=== PATIENT | female | born 1950 | race Caucasian/White ===

== ENCOUNTER 2018-08-22 19:15 | Observation (INO) | payer BC ==
[2018-08-22 19:31] VITALS: BMI 29.2
--- NOTE | 2018-08-22 19:32 | PDOC ---
History of Present Illness - General History Source: Patient Exam Limitations: No Limitations - History of Present Illness Initial Comments: 08/22/18 20:16 The patient is a 68 year old female with a significant PMH of H pylori, angina, colon polyp and asthma who presents to the emergency department with nausea and vomiting since earlier today. The patient reports that she was at a yoga class earlier today when she felt a sudden onset of nausea. The patient states that she subsequently went outside to get air when she felt a dizzy spinning sensation. She reports some associated vomiting with her nausea and dizziness. She also reports some stomach pain and diarrhea. The patient states that when she woke up this morning she had an apple and some tea. She denies having an episode like this in the past. She denies any other symptoms. She denies any fever, chills, constipation, or urinary symptoms. She denies any chest pain, shortness of breath, or headache. The patient denies any other complaints. PAST MEDICAL HISTORY: H pylori, angina, colon polyp and asthma PAST SURGICAL HISTORY: no significant history FAMILY HISTORY: no pertinent history SOCIAL HISTORY: Pt lives with family and is employed. MEDICATIONS: reviewed ALLERGIES: As per nursing notes General: No fevers or chills, no weakness, no weight loss HEENT: No change in vision. No sore throat,. No ear pain CardioVascular: No chest pain or shortness of breath Respiratory:No cough, or wheezing. Gastrointestinal: (+)nausea, vomiting, diarrhea, stomach pain. no constipation , No rectal bleeding Genitourinary: No dysuria, hematuria, or frequency Musculoskeletal: No joint or muscle pain or swelling Neurologic: (+)dizziness. No headache, vertigo, or loss of consciousness Psychiatric: nor depression Skin: No rashes or easy bruising Endocrine: no increased thirst or abnormal weight change Allergic: no skin or latex allergy All other systems reviewed and normal General: Well-nourished well-developed individual, no acute distress HEENT: Throat: Normal, tonsils normal, no erythema or exudate Neck: Supple, no meningeal signs, no lymphadenopathy Eyes::Pupils equal reactive and round, extraocular motion intact Chest: Nontender to palpation Cardiac: S1-S2 normal, regular rate and rhythm, no murmurs rubs or gallops Respiratory: Lungs clear to auscultation bilateral Abdomen: (+)mild tenderness to palpation across lower abdomen . Soft, nondistended, normal bowel sounds. Extremities: Warm, dry, no cyanosis, clubbing, or edema Skin: No rashes Neuro: (+)spinning worse with positional change. Alert and oriented x3, nonfocal exam, grossly intact, normal gait Psych: Normal mood and affect Documentation prepared by Emma Menendez, acting as medical records coder for Freddy Mckeon MD. <Emma Menendez - Last Filed: 08/22/18 20:16> - General History Source: Patient Exam Limitations: No Limitations - History of Present Illness Initial Comments: 08/22/18 20:05 A portion of this note was documented by scribe services under my direction. I have reviewed the details of the note, within reason, and agree with the documentation. The case summary and management plan written by me. 21:00 Patient vomited, , CAT scan pending 22:00 Patient continues to vomit and have some diarrhea in spite of the antiemetics and the fluids. Patient CAT scan was negative for any acute intra-abdominal pathology however does show a cyst small cyst on her liver that will need to be worked up as an outpatient. Otherwise her head CT was also negative Patient continues to have vertigo and vomiting so will admit her to rule out CVA and for further management of her vomiting. <Freddy Mckeon I - Last Filed: 08/22/18 22:09> - General Chief Complaint: Nausea/Vomiting Stated Complaint: vomiting,abdominal pain Time Seen by Provider: 08/22/18 19:31 Past History <Emma Menendez - Last Filed: 08/22/18 20:16> - Past Medical History Asthma: Yes (NO RECENT ATTACK) Cardiac Disorders: Yes (Angina) COPD: No GI Disorders: Yes (COLON POLYPS,H.PYLORI) - Surgical History Cardiac Surgery: Yes (Cath) - Suicide/Smoking/Psychosocial Hx Smoking History: Never smoked Hx Alcohol Use: No Drug/Substance Use Hx: No Substance Use Type: None Hx Substance Use Treatment: No <Freddy Mckeon I - Last Filed: 08/22/18 22:09> - Past Medical History Allergies/Adverse Reactions: Allergies Allergy/AdvReac Type Severity Reaction Status Date / Time Sulfa (Sulfonamide Allergy Verified 08/22/18 19:26 Antibiotics) Home Medications: Ambulatory Orders Albuterol Sulfate [Proair Hfa] 0 gm IH PRN PRN 08/22/18 *Physical Exam - Vital Signs Last Vital Signs Temp Pulse Resp BP Pulse Ox 97.9 F 77 18 159/81 100 08/22/18 19:26 08/22/18 19:26 08/22/18 19:26 08/22/18 20:08 08/22/18 19:26 <Emma Menendez - Last Filed: 08/22/18 20:16> - Vital Signs Last Vital Signs Temp Pulse Resp BP Pulse Ox 97.9 F 77 18 185/86 H 100 08/22/18 19:26 08/22/18 19:26 08/22/18 19:26 08/22/18 19:26 08/22/18 19:26 <Freddy Mckeon I - Last Filed: 08/22/18 22:09> Heart Score/ECG Review - ECG Intrepretation Comment:: 08/22/18 20:16 Vent rate: 71 bpm UT interval: 170ms QRS duration:104ms QT/QTc: 426/462 Normal sinus rhythm Normal ECG Documentation prepared by Emma Menendez, acting as medical records coder for Freddy Mckeon MD. <Emma Menendez - Last Filed: 08/22/18 20:16> ED Treatment Course - LABORATORY CBC & Chemistry Diagram: 08/22/18 19:58 08/22/18 19:58 - ADDITIONAL ORDERS Additional order review: 08/22/18 19:58 RBC 4.80 MCV 88.2 MCHC 33.1 RDW 13.0 MPV 9.6 Neutrophils % 86.6 H Lymphocytes % 10.5 Monocytes % 2.4 L Eosinophils % 0.2 Basophils % 0.3 - Medications Given in the ED: ED Medications Discontinued Medications Generic Name Dose Route Start Last Admin Trade Name Freq PRN Reason Stop Dose Admin Meclizine HCl 50 mg 08/22/18 19:51 08/22/18 20:07 Antivert - PO 08/22/18 19:52 50 mg ONCE ONE Administration Ondansetron HCl 8 mg 08/22/18 19:43 08/22/18 19:57 Zofran Injection IVPB 08/22/18 19:44 8 mg ONCE ONE Administration <Emma Menendez - Last Filed: 08/22/18 20:16> - LABORATORY CBC & Chemistry Diagram: 08/22/18 19:58 08/22/18 19:58 <Freddy Mckeon I - Last Filed: 08/22/18 22:09> *DC/Admit/Observation/Transfer <Emma Menendez - Last Filed: 08/22/18 20:16> - Discharge Dispostion Decision to Admit order: Yes <Freddy Mckeon I - Last Filed: 08/22/18 22:09> Diagnosis at time of Disposition: Vertigo Intractable vomiting Qualifiers: Vomiting type: unspecified Nausea presence: with nausea Qualified Code(s): R11.2 - Nausea with vomiting, unspecified - Discharge Dispostion Condition at time of disposition: Stable - Referrals Referrals: Jean Paul Correa MD [Primary Care Provider] -
[2018-08-22] MEDS ORDERED: ONDANSETRON 4 MG/2 ML VIAL IVPB ONE (19:43)
[2018-08-22] MEDS ORDERED: SODIUM CHLORIDE 1,000 ML IV SCH (19:45)
[2018-08-22] MEDS ORDERED: ONDANSETRON 4 MG/2 ML VIAL ONE (19:49)
[2018-08-22] MEDS ORDERED: MECLIZINE HCL 25 MG TABLET (FP) PO ONE (19:51)
[2018-08-22] MEDS ORDERED: MECLIZINE HCL 25 MG TABLET (FP) ONE (20:01)
[2018-08-22 20:08] LABS: BASO % 0.3 % (0-2.0); EOS % 0.2 % (0-4.5); HEMATOCRIT 42.4 % (32.4-45.2); LYMPH % 10.5 % (8-40); MCH 29.2 pg (25.7-33.7); MCHC 33.1 g/dl (32.0-36.0); MEAN CELL VOLUME 88.2 fl (80-96); MEAN PLT VOLUME 9.6 fl (7.5-11.1); MONO % 2.4 % (3.8-10.2); NEUT % 86.6 % (42.8-82.8); PLATELET COUNT 246 K/MM3 (134-434); WHITE BLOOD COUNT 9.1 K/mm3 (4.0-10.8)
[2018-08-22 20:17] LABS: ALBUMIN 4.4 g/dl (3.5-5.0); ALK PHOS 62 U/L (32-92); ANION GAP 8 MMOL/L (8-16); BILIRUBIN,TOTAL 0.6 mg/dl (0.2-1.0); BLOOD UREA NITROGEN 7 mg/dl (7-18); CALCIUM 8.9 mg/dl (8.4-10.2); CHLORIDE 94 mmol/L (98-107); CO2 29 mmol/L (22-28); GLUCOSE,RANDOM 162 mg/dl (74-106); POTASSIUM 3.2 mmol/L (3.5-5.1); SGOT/AST 28 U/L (10-42); SGPT/ALT 35 U/L (10-40); SODIUM 131 mmol/L (136-145)
[2018-08-22 20:22] LABS: CREATININE < 0.6 mg/dl (0.6-1.3)
[2018-08-22 21:45] LABS: LIPASE 104 U/L (73-393)
[2018-08-22] MEDS ORDERED: METOCLOPRAMIDE HCL INJECTION 10 MG/2 ML VIAL IVPUSH ONE (22:06)
[2018-08-22 22:10] LABS: PH,URINE 8.5 (4.5-8); URINE APPEARANCE Clear; URINE BILIRUBIN Negative (NEGATIVE); URINE COLOR Yellow; URINE GLUCOSE (UA) Trace (NEGATIVE); URINE LEUK ESTERASE Negative (NEGATIVE); URINE NITRITE Negative (NEGATIVE); URINE UROBILINOGEN 0.2 (0.2-1.0)
[2018-08-22 22:13] LABS: URINE KETONE Trace (NEGATIVE); URINE PROTEIN Negative (NEGATIVE)
[2018-08-22] MEDS ORDERED: POTASSIUM CHLORIDE TABS 20 MEQ TABLET.ER (FP) PO ONE ×2 (22:28→23:15)
--- NOTE | 2018-08-23 01:34 | HP ---
CHIEF COMPLAINT: N/V PCP: Sunny HISTORY OF PRESENT ILLNESS: This is a 68 year old female with a past medical history of asthma, angina who presented to the ED with dizziness, nausea and vomiting. Pt reports that she was fine when she awoke this AM; she ate an apple and had some tea. She had to leave yoga in the middle due to dizziness associated with nausea. Sudden onset. She later had vomiting "all day" after attempting to eat a protein bar. Also with diarrhea. She also reports loose BM. She denies exacerbating/relieving factors. She felt better after receiving medications in the ED. She became a little dizzy when transferring to [facility]. She reports feeling better with laying still. ER course was notable for: (1) CT head unremarkable (2) Sodium 131, Potassium 3.2 Recent Travel: [place] early July PAST MEDICAL HISTORY: angina dx 20y ago, takes no meds, has seen Flex in past but not currently following with him; H. pylor, colon polyp, asthma PAST SURGICAL HISTORY: partial hysterectomy with appendectomy tonsillectomy as a child Social History: Smoking: pt denies Alcohol: pt denies Drugs: pt denies Family History: mother age 79, Parkinson's disease, [place] in her 60s, h/o HTN, HLD father age 92, h/o heart disease brother age 59, lung disease, prior smoker 2 children alive and well Allergies Sulfa (Sulfonamide Antibiotics) Allergy (Verified 08/22/18 19:26) HOME MEDICATIONS: 3 Medication Instructions Recorded Albuterol Sulfate [Proair Hfa] 0 gm IH PRN PRN 08/22/18 REVIEW OF SYSTEMS CONSTITUTIONAL: Absent: fever, chills, diaphoresis, generalized weakness, malaise, loss of appetite, weight change HEENT: Absent: rhinorrhea, nasal congestion, throat pain, throat swelling, difficulty swallowing, mouth swelling, ear pain, eye pain, visual changes CARDIOVASCULAR: Absent: chest pain, syncope, palpitations, irregular heart rate, lightheadedness , peripheral edema RESPIRATORY: Absent: cough, shortness of breath, dyspnea with exertion, orthopnea, wheezing, stridor, hemoptysis GASTROINTESTINAL: Present: nausea, vomiting, diarrhea Absent: abdominal pain, abdominal distension, constipation, melena, hematochezia GENITOURINARY: Absent: dysuria, frequency, urgency, hesitancy, hematuria, flank pain, genital pain MUSCULOSKELETAL: Absent: myalgia, arthralgia, joint swelling, back pain, neck pain SKIN: Absent: rash, itching, pallor HEMATOLOGIC/IMMUNOLOGIC: Absent: easy bleeding, easy bruising, lymphadenopathy, frequent infections ENDOCRINE: Absent: unexplained weight gain, unexplained weight loss, heat intolerance, cold intolerance NEUROLOGIC: Present: dizziness Absent: headache, focal weakness or paresthesias, unsteady gait, seizure, mental status changes, bladder or bowel incontinence PSYCHIATRIC: Absent: anxiety, depression, suicidal or homicidal ideation, hallucinations. PHYSICAL EXAMINATION Vital Signs - 24 hr 3 08/22/18 08/22/18 08/22/18 19:26 20:08 23:36 Temperature 97.9 F 97.4 F L Pulse Rate 77 56 L Respiratory 18 16 Rate Blood Pressure 185/86 H 147/61 Blood Pressure 159/81 [Arm] O2 Sat by Pulse 100 99 Oximetry (%) GENERAL: Awake, alert, and fully oriented, in no acute distress. HEAD: Normal with no signs of trauma. EYES: Pupils equal, round and reactive to light, extraocular movements intact, sclera anicteric, conjunctiva clear. No lid lag. EARS, NOSE, THROAT: Ears normal, nares patent, oropharynx clear without exudates. Moist mucous membranes. NECK: Normal range of motion, supple without lymphadenopathy, JVD, or masses. LUNGS: Breath sounds equal, clear to auscultation bilaterally. No wheezes, and no crackles. No accessory muscle use. HEART: Regular rate and rhythm, normal S1 and S2 without murmur, rub or gallop. ABDOMEN: Soft, nontender, not distended, normoactive bowel sounds, no guarding, no rebound, no masses. No hepatomegaly or splenomegaly. MUSCULOSKELETAL: Normal range of motion at all joints. No bony deformities or tenderness. No CVA tenderness. UPPER EXTREMITIES: 2+ pulses, warm, well-perfused. No cyanosis. No clubbing. No peripheral edema. LOWER EXTREMITIES: 2+ pulses, warm, well-perfused. No calf tenderness. No peripheral edema. NEUROLOGICAL: Cranial nerves II-XII intact. Normal speech. Normal gait. + madi lundberg pike, horizontal nystagmus both left and right side PSYCHIATRIC: Cooperative. Good eye contact. Appropriate mood and affect. SKIN: Warm, dry, normal turgor, no rashes or lesions noted, normal capillary refill. Laboratory Results - last 24 hr 3 08/22/18 08/22/18 08/22/18 19:58 19:58 19:58 WBC 9.1 RBC 4.80 Hgb 14.0 Hct 42.4 MCV 88.2 MCH 29.2 MCHC 33.1 RDW 13.0 Plt Count 246 MPV 9.6 Absolute Neuts (auto) 7.9 Neutrophils % 86.6 H Lymphocytes % 10.5 Monocytes % 2.4 L Eosinophils % 0.2 Basophils % 0.3 Sodium 131 L Potassium 3.2 L Chloride 94 L Carbon Dioxide 29 H Anion Gap 8 BUN 7 Creatinine < 0.6 L Creat Clearance w eGFR > 60 Random Glucose 162 H Calcium 8.9 Total Bilirubin 0.6 AST 28 ALT 35 Alkaline Phosphatase 62 Creatine Kinase 232 H Creatine Kinase Index 2.5 CK-MB (CK-2) 5.8 H Troponin I < 0.03 Total Protein 7.0 Albumin 4.4 Lipase 104 Urine Color Urine Appearance Urine pH Ur Specific [place] Gap Urine Protein Urine Glucose (UA) Urine Ketones Urine Blood Urine Nitrite Urine Bilirubin Urine Urobilinogen Ur Leukocyte Esterase Urine RBC 3 Urine Color Yellow 08/22/18 22:07 Urine Appearance Clear 08/22/18 22:07 Urine pH 8.5 (4.5-8) H 08/22/18 22:07 Ur Specific Bone Gap 1.020 (1.010-1.035) 08/22/18 22:07 Urine Protein Negative (NEGATIVE) 08/22/18 22:07 Urine Glucose (UA) Trace (NEGATIVE) 08/22/18 22:07 Urine Ketones Trace (NEGATIVE) 08/22/18 22:07 Urine Blood Negative (NEGATIVE) 08/22/18 22:07 Urine Nitrite Negative (NEGATIVE) 08/22/18 22:07 Urine Bilirubin Negative (NEGATIVE) 08/22/18 22:07 Ur Leukocyte Esterase Negative (NEGATIVE) 08/22/18 22:07 Urine RBC No Result Required. 08/22/18 22:07 EKG Normal Sinus Rhythm vent rate 71, QTC [address] / T wave changes Radiology Reports CXR--official read pending, no obvious infiltrates or effusions CT head Impression: No CT evidence of acute intracranial pathology. Reported By: Tacos Youssef MD [id number]/22/[id number] CT abd/pel IMPRESSION: No definite CT findings of acute pathology are identified. Moderate to large hiatal hernia. A nonspecific solitary 0.4 cm left hepatic lobe hypodense focus is seen which may represent a hemangioma or cyst and probably less likely more significant pathology. Correlation with contrast- enhanced MRI is suggested. Alternatively correlation with 2 month follow-up contrast enhanced multiphase CT may be performed. Very small umbilical hernia containing fat only. Reported By: Tacos Youssef MD 08/22/18 [id number] ASSESSMENT/PLAN: 68yF with PMH angina, asthma, H. pylori, colon polyp presented to the ED with dizziness, nausea, vomiting, diarrhea. Vertigo - pt could not tolerate Cecil procedure due to nausea and dizziness - meclizine 25mg po PRN - consider neuro consult - CT head unremarkable hypokalemia - 40mEq po in ed, repeat in am asthma - no s/s exacerbation DVT PPX - heparin deferred, anticipated LOS less than 48h FEN - NS @ 75cc/hr - BMP in am - clear liquid diet as tolerated for breakfast. Dispo: pt currently requires further observation for management of her emergent condition. Visit type - Emergency Visit Emergency Visit: Yes ED Registration Date: 08/22/18 Care time: The patient presented to the Emergency Department on the above date and was hospitalized for further evaluation of their emergent condition. - New Patient This patient is new to me today: Yes Date on this admission: 08/23/18 - Critical Care Critical Care patient: No
[2018-08-23] MEDS ORDERED: ALBUTEROL SO4 8 GM HFA INHALER IH PRN (01:42)
[2018-08-23] MEDS ORDERED: ONDANSETRON 4 MG/2 ML VIAL IVPUSH PRN (02:19)
[2018-08-23] MEDS ORDERED: SODIUM CHLORIDE 1,000 ML IV SCH (02:30)
[2018-08-23] MEDS: MECLIZINE HCL 25 MG TABLET (FP) PO PRN (02:33)
--- NOTE | 2018-08-23 09:26 | PN ---
Physical Exam: SUBJECTIVE: Patient seen and examined, reports ongoing dizziness and nausea, patient reports as if objects are spinning around her. OBJECTIVE:patient is a 68-year-old female with a past medical history of angina and asthma. Patient was immediately emergency department to telemetry observation for vertigo and vomiting Vital Signs Period Temp Pulse Resp BP Sys/Richards Pulse Ox Last 24 Hr 97 F-97.9 F 56-77 16-18 100-185/44-86 97-100 GENERAL: The patient is awake, alert, and fully oriented, in no acute distress. HEAD: Normal with no signs of trauma. EYES: PERRL, extraocular movements intact, sclera anicteric, conjunctiva clear. No ptosis. ENT: Ears normal, nares patent, oropharynx clear without exudates, moist mucous membranes. NECK: Trachea midline, full range of motion, supple. LUNGS: Breath sounds equal, clear to auscultation bilaterally, no wheezes, no crackles, no accessory muscle use. HEART: Regular rate and rhythm, S1, S2 without murmur, rub or gallop. ABDOMEN: Soft, nontender, nondistended, normoactive bowel sounds, no guarding, no rebound, no hepatosplenomegaly, no masses. EXTREMITIES: 2+ pulses, warm, well-perfused, no edema. NEUROLOGICAL: Cranial nerves II through XII grossly intact.left nystagmus noted , Normal speech, shuffling gaits noted observed. PSYCH: Normal mood, normal affect. SKIN: Warm, dry, normal turgor, no rashes or lesions noted Laboratory Results - last 24 hr 08/22/18 08/22/18 08/22/18 19:58 19:58 19:58 WBC 9.1 RBC 4.80 Hgb 14.0 Hct 42.4 MCV 88.2 MCH 29.2 MCHC 33.1 RDW 13.0 Plt Count 246 MPV 9.6 Absolute Neuts (auto) 7.9 Neutrophils % 86.6 H Lymphocytes % 10.5 Monocytes % 2.4 L Eosinophils % 0.2 Basophils % 0.3 Sodium 131 L Potassium 3.2 L Chloride 94 L Carbon Dioxide 29 H Anion Gap 8 BUN 7 Creatinine < 0.6 L Creat Clearance w eGFR > 60 Random Glucose 162 H Calcium 8.9 Total Bilirubin 0.6 AST 28 ALT 35 Alkaline Phosphatase 62 Creatine Kinase Creatine Kinase Index CK-MB (CK-2) Troponin I < 0.03 Total Protein 7.0 Albumin 4.4 Lipase 104 Urine Color Urine Appearance Urine pH Ur Specific [place] Urine Protein Urine Glucose (UA) Urine Ketones Urine Blood Urine Nitrite Urine Bilirubin Urine Urobilinogen Ur Leukocyte Esterase Urine RBC 08/22/18 08/22/18 19:58 22:07 WBC RBC Hgb Hct MCV MCH MCHC RDW Plt Count MPV Absolute Neuts (auto) Neutrophils % Lymphocytes % Monocytes % Eosinophils % Basophils % Sodium Potassium Chloride Carbon Dioxide Anion Gap BUN Creatinine Creat Clearance w eGFR Random Glucose Calcium Total Bilirubin AST ALT Alkaline Phosphatase Creatine Kinase 232 H Creatine Kinase Index 2.5 CK-MB (CK-2) 5.8 H Troponin I Total Protein Albumin Lipase Urine Color Yellow Urine Appearance Clear Urine pH 8.5 H Ur Specific [place] 1.020 Urine Protein Negative Urine Glucose (UA) Trace Urine Ketones Trace Urine Blood Negative Urine Nitrite Negative Urine Bilirubin Negative Urine Urobilinogen 0.2 Ur Leukocyte Esterase Negative Urine RBC No Result Required. Active Medications Generic Name Dose Route Start Last Admin Trade Name Freq PRN Reason Stop Dose Admin Albuterol Sulfate 2 puff 08/23/18 01:42 Ventolin Hfa Inhaler - IH Q4H PRN SHORT OF BREATH/WHEEZING Sodium Chloride 1,000 mls @ 75 mls/hr 08/23/18 02:30 08/23/18 02:32 Normal Saline - IV 75 mls/hr ASDIR ANISH Administration Meclizine HCl 25 mg 08/23/18 01:43 08/23/18 02:33 Antivert - PO 25 mg Q8H PRN Administration VERTIGO Ondansetron HCl 4 mg 08/23/18 02:19 Zofran Injection IVPUSH Q6H PRN NAUSEA IMAGING ct of head: no acute pathology CT of abdomen and pelvis with contrast: Moderate to large hiatal hernia nonspecific solitary 0.4 cm left hepatic lobe hypodense focus represent hemangioma or cysts will required 2 month follow-up chest xray: no acute pathology ASSESSMENT/PLAN: 1) neuro Vertigo - Valium 5 mg by mouth 1 given patient reports no relief, ambulated patient in hallway patient reports a spinning sensation inside her head with nausea, MRI of brain ordered -Neurology input appreciated 2) pulmonary asthma - no s/s exacerbation 3) GI nausea and vomiting - ct scan of abd reviewed, pt is tolerating clear liquid diet, will advance - continue zofran prn DVT PPX - heparin deferred, anticipated LOS less than 48h FEN - NS @ 75cc/hr - BMP in am - clear liquid diet as tolerated for breakfast. Dispo: pt currently requires further observation for management of her emergent condition.
[2018-08-23] MEDS ORDERED: diazePAM 5 MG TABLET PO ONE (10:10)
[2018-08-23] MEDS: PANTOPRAZOLE SODIUM 40 MG VIAL IVPUSH SCH (10:16)
[2018-08-23] MEDS: SODIUM CHLORIDE 0.45%/POT 20 MEQ/1,000 ML INFUS.BAG IV SCH (10:16)
[2018-08-23 10:27] LABS: BASO % 0.4 % (0-2.0); EOS % 0.5 % (0-4.5); HEMATOCRIT 40.7 % (32.4-45.2); HEMOGLOBIN 13.6 GM/dl (10.7-15.3); LYMPH % 18.7 % (8-40); MCH 29.4 pg (25.7-33.7); MCHC 33.3 g/dl (32.0-36.0); MEAN CELL VOLUME 88.3 fl (80-96); MEAN PLT VOLUME 9.5 fl (7.5-11.1); MONO % 7.8 % (3.8-10.2); NEUT % 72.6 % (42.8-82.8); PLATELET COUNT 234 K/MM3 (134-434); RBC 4.61 M/mm3 (3.60-5.2); RDW 12.9 % (11.6-15.6); WHITE BLOOD COUNT 6.7 K/mm3 (4.0-10.8)
[2018-08-23 10:37] LABS: ANION GAP 7 MMOL/L (8-16); BLOOD UREA NITROGEN 6 mg/dl (7-18); CALCIUM 8.8 mg/dl (8.4-10.2); CHLORIDE 102 mmol/L (98-107); CO2 24 mmol/L (22-28); CREATININE 0.6 mg/dl (0.6-1.3); GLUCOSE,RANDOM 170 mg/dl (74-106); MAGNESIUM 2.1 mg/dL (1.8-2.4); PHOSPHOROUS 2.9 mg/dl (2.5-4.6); POTASSIUM 3.6 mmol/L (3.5-5.1); SODIUM 133 mmol/L (136-145)
--- NOTE | 2018-08-23 12:12 | EKG ---
Test Reason : Blood Pressure : / mmHG Vent. Rate : 071 BPM Atrial Rate : 071 BPM P-R Int : 170 ms QRS Dur : 104 ms QT Int : 426 ms P-R-T Axes : 049 058 029 degrees QTc Int : 462 ms NORMAL SINUS RHYTHM NORMAL ECG NO PREVIOUS ECGS AVAILABLE Confirmed by CHARO BECKER MD ([id number]) on 08/23/2018 12:12:06 PM Referred By: MD EDWARDS Confirmed By:CHARO BECKER MD
[2018-08-23] MEDS ORDERED: ZOLPIDEM TARTRATE 5 MG TABLET PO PRN (14:30)
--- NOTE | 2018-08-23 14:42 | ECHO ---
Name: ADINA MONGE Exam:Adult Echocardiogram Study Date: 08/23/2018 12:48 PM Age: 68 yrs Reason For Study: PRE SYNCOPE Height: 62 in Weight: 161 lb BSA: 1.7 m2 MMode/2D Measurements & Calculations IVSd: 0.92 cm Ao root diam: 2.7 cm LVIDd: 4.2 cm LA dimension: 2.8 cm LVIDs: 2.8 cm LVPWd: 0.72 cm EDV(Teich): 79.9 ml ESV(Teich): 29.1 ml Doppler Measurements & Calculations MV E max yung: 90.9 cm/sec MV A max yung: 85.8 cm/sec MV dec slope: 408.1 cm/sec2 MV E/A: 1.1 TR max yung: 174.5 cm/sec TR max P.2 mmHg Procedure A complete two-dimensional transthoracic echocardiogram was performed (2D, M-mode, Doppler and color flow Doppler). Left Ventricle The left ventricular size, thickness and function are normal. The left ventricular ejection fraction is normal. Ejection Fraction = 60-65%. The left ventricular wall motion is normal. Right Ventricle The right ventricle is normal in size and function. Atria Normal left and right atrial size and function. Mitral Valve There is no mitral regurgitation noted. Tricuspid Valve There is trace tricuspid regurgitation. There was insufficient TR detected to calculate RV systolic p ressure. Aortic Valve No hemodynamically significant valvular aortic stenosis. No aortic regurgitation is present. Pulmonic Valve Trace pulmonic valvular regurgitation. Great Vessels The aortic root is normal size. Pericardium/Pleura There is no pericardial effusion. Interpretation Summary The left ventricular size, thickness and function are normal. The right ventricle is normal in size and function. There is trace tricuspid regurgitation. Trace pulmonic valvular regurgitation. MD Patric Mccord 08/23/2018 02:41 PM
[2018-08-23] MEDS: ASPIRIN COATED 81 MG TABLET.EC PO SCH (15:00)
--- NOTE | 2018-08-23 17:26 | CON.NEURO ---
Consult Consult Specialty:: Berry Referred by:: Hospitalist Reason for Consultation:: Dizzy - History of Present Illness History of Present Illness: 68-year-old right-handed female patient with present medical history significant for coronary artery disease, angina, asthma, questionable diabetes presented to the hospital with dizziness. Patient was consulted upon by neurology at the request of the hospitalist on August 23, 2018 with chief complaint of difficulty with her equilibrium and balance. No report of any recent travel patient was seen on the medical floor no report of any recent head trauma. Patient describes dizziness as feeling off balance no nausea no Patient denies any true vertigo no buzzing sound no tinnitus. CAT scan of the head revealed no evidence of acute central nervous system pathology. Patient was at the Yoga class No new travel Patient had sustained nausea and vomiting - History Source History Provided By: Patient Limitations to Obtaining History: No Limitations - Alcohol/Substance Use Hx Alcohol Use: No - Smoking History Smoking history: Never smoked Home Medications - Allergies Allergies/Adverse Reactions: Allergies Allergy/AdvReac Type Severity Reaction Status Date / Time Sulfa (Sulfonamide Allergy Verified 08/22/18 19:26 Antibiotics) - Home Medications Home Medications: Ambulatory Orders Albuterol Sulfate [Proair Hfa] 0 gm IH PRN PRN 08/22/18 Family Disease History - Family Disease History Family History: Denies (stroke) Review of Systems - Review of Systems Neurological: reports: Headache, Incoordination, Numbness, Unsteady Gait Physical Exam-Neuro Vital Signs: Vital Signs Temperature 98.2 F 08/23/18 14:14 Pulse Rate 62 08/23/18 14:14 Respiratory Rate 16 08/23/18 14:14 Blood Pressure 126/57 L 08/23/18 14:14 O2 Sat by Pulse Oximetry (%) 94 L 08/23/18 14:14 Constitutional: Yes: Well Nourished Neck: Yes: WNL Respiratory: Yes: WNL Labs: CBC, BMP 08/23/18 09:59 08/23/18 09:59 - Neuro Exam Level Of Consciousness: Yes: Oriented to Person, Oriented to Place, Oriented to Time Eyes: Yes: PERRLA Speech: WNL Dominant Hand: Left Cranial Nerves II-XII Intact: Yes Gag: Present DTR's: 1+ Left Bicep, 1+ Right Bicep, 1+ Left Brachioradialis, 1+ Right Brachioradialis Imaging - Results Cat Scan: Image Reviewed Problem List - Problems (1) Vertigo Assessment/Plan: subacute labyrinthitis Cannot rule out mild small ischemic lacunar stroke in the cerebellum 1. Tight blood pressure control 2. Tight blood sugar control 3. Fall precautions 4. Baby aspirin 5. No need for carotid 6. MRI of the brain with no contrast Code(s): R42 - DIZZINESS AND GIDDINESS
[2018-08-24 08:24] LABS: BASO % 0.6 % (0-2.0); EOS % 2.3 % (0-4.5); HEMATOCRIT 40.5 % (32.4-45.2); HEMOGLOBIN 13.4 GM/dl (10.7-15.3); LYMPH % 42.6 % (8-40); MCH 29.5 pg (25.7-33.7); MCHC 33.1 g/dl (32.0-36.0); MEAN CELL VOLUME 89.1 fl (80-96); MEAN PLT VOLUME 9.4 fl (7.5-11.1); MONO % 9.9 % (3.8-10.2); NEUT % 44.6 % (42.8-82.8); PLATELET COUNT 228 K/MM3 (134-434); RBC 4.54 M/mm3 (3.60-5.2); RDW 13.4 % (11.6-15.6); WHITE BLOOD COUNT 3.4 K/mm3 (4.0-10.8)
[2018-08-24 08:30] LABS: INR 1.07 (0.82-1.09)
[2018-08-24 08:38] LABS: ALBUMIN 3.8 g/dl (3.5-5.0); ALK PHOS 57 U/L (32-92); ANION GAP 3 MMOL/L (8-16); BILIRUBIN,TOTAL 0.8 mg/dl (0.2-1.0); BLOOD UREA NITROGEN 5 mg/dl (7-18); CHLORIDE 106 mmol/L (98-107); CO2 29 mmol/L (22-28); CREATININE 0.6 mg/dl (0.6-1.3); GLUCOSE,RANDOM 137 mg/dl (74-106); MAGNESIUM 2.1 mg/dL (1.8-2.4); PHOSPHOROUS 2.7 mg/dl (2.5-4.6); POTASSIUM 3.9 mmol/L (3.5-5.1); SGOT/AST 22 U/L (10-42); SGPT/ALT 26 U/L (10-40); SODIUM 138 mmol/L (136-145); TOT PROT 6.2 g/dl (6.4-8.3)
[2018-08-24] MEDS: ASPIRIN COATED 81 MG TABLET.EC PO SCH (09:31)
[2018-08-24] MEDS: SODIUM CHLORIDE 0.45%/POT 20 MEQ/1,000 ML INFUS.BAG IV SCH (09:33)
[2018-08-24] MEDS: PANTOPRAZOLE SODIUM 40 MG VIAL IVPUSH SCH (09:33)
[2018-08-24] MEDS: MECLIZINE HCL 25 MG TABLET (FP) PO PRN (11:07)
[2018-08-24 12:22] VITALS: BP 154/95; PULSE 72; TEMP 98.6
--- NOTE | 2018-08-24 12:44 | DS ---
Physical Exam: SUBJECTIVE: Patient seen and examined OBJECTIVE: Vital Signs Period Temp Pulse Resp BP Sys/Richards Pulse Ox Last 24 Hr 98.0 F-98.6 F 62-72 16-18 126-154/57-95 94-97 PHYSICAL EXAM GENERAL: The patient is awake, alert, and fully oriented, in no acute distress. HEAD: Normal with no signs of trauma. EYES: PERRL, extraocular movements intact, sclera anicteric, conjunctiva clear. ENT: Ears normal, nares patent, oropharynx clear without exudates, moist mucous membranes. NECK: Trachea midline, full range of motion, supple. LUNGS: Breath sounds equal, clear to auscultation bilaterally, no wheezes, no crackles, no accessory muscle use. HEART: Regular rate and rhythm, S1, S2 without murmur, rub or gallop. ABDOMEN: Soft, nontender, nondistended, normoactive bowel sounds, no guarding, no rebound, no hepatosplenomegaly, no masses. EXTREMITIES: 2+ pulses, warm, well-perfused, no edema. NEUROLOGICAL: Cranial nerves II through XII grossly intact. Normal speech, gait not observed. PSYCH: Normal mood, normal affect. SKIN: Warm, dry, normal turgor, no rashes or lesions noted. LABS Laboratory Results - last 24 hr 08/23/18 08/23/18 08/24/18 16:00 16:00 08:00 WBC 3.4 L RBC 4.54 Hgb 13.4 Hct 40.5 MCV 89.1 MCH 29.5 MCHC 33.1 RDW 13.4 Plt Count 228 MPV 9.4 Absolute Neuts (auto) 1.6 Neutrophils % 44.6 Lymphocytes % 42.6 H Monocytes % 9.9 Eosinophils % 2.3 Basophils % 0.6 PT with INR INR Sodium Potassium Chloride Carbon Dioxide Anion Gap BUN Creatinine Creat Clearance w eGFR Random Glucose Hemoglobin A1c % Calcium Phosphorus Magnesium Total Bilirubin AST ALT Alkaline Phosphatase Creatine Kinase 140 Troponin I < 0.03 Total Protein Albumin 08/24/18 08/24/18 08/24/18 08:00 08:00 08:00 WBC RBC Hgb Hct MCV MCH MCHC RDW Plt Count MPV Absolute Neuts (auto) Neutrophils % Lymphocytes % Monocytes % Eosinophils % Basophils % PT with INR 12.0 INR 1.07 Sodium 138 Potassium 3.9 Chloride 106 Carbon Dioxide 29 H D Anion Gap 3 L BUN 5 L Creatinine 0.6 Creat Clearance w eGFR > 60 Random Glucose 137 H Hemoglobin A1c % 6.8 H Calcium 9.0 Phosphorus 2.7 Magnesium 2.1 Total Bilirubin 0.8 AST 22 D ALT 26 D Alkaline Phosphatase 57 Creatine Kinase Troponin I Total Protein 6.2 L Albumin 3.8 HOSPITAL COURSE: Date of Admission:08/22/18 Date of Discharge: 08/24/18 Minutes to complete discharge: 45 Discharge Summary Reason For Visit: VERTIGO/INTRACTABLE VOMITING Current Active Problems Intractable vomiting (Acute) Vertigo (Acute) Condition: Stable - Instructions Referrals: Jean Paul Correa MD [Primary Care Provider] - - Home Medications Comprehensive Discharge Medication List: Ambulatory Orders Albuterol Sulfate [Proair Hfa] 0 gm IH PRN PRN 08/22/18
== END 2018-08-24 14:15 | disposition home or self-care (01) ==
LOC: SUPCPDRO 19:15 → FER 19:15 → FM/S 22:09 → UNDOADMOB 23:36 → FM/S 08-23 06:23
PROVIDERS: ADMIT Internal Medicine; ATTEND Nurse Practitioner Family
PROC: 3E033GC Introduction of Other Therapeutic Substance into Peripheral Vein, Percutaneous Approach (ICD-10-PCS; principal; 2018-08-22)
PROC: 3E0337Z Introduction of Electrolytic and Water Balance Substance into Peripheral Vein, Percutaneous Approach (ICD-10-PCS; 2018-08-22)
DX: R42 Dizziness and giddiness (principal); R11.2 Nausea with vomiting, unspecified; E87.6 Hypokalemia; J45.909 Unspecified asthma, uncomplicated
CPT/HCPCS: 36415; 70450-TC; 70551-TC; 71045-TC-FY; 74177-TC; 80048; 80053; 81003; 81015; 82550; 82553; 82607; 83036; 83690; 83735; 84100; 84436; 84443; 84479; 84484; 85025; 85610; 87086; 93005; 93306-TC; 97116-GP; 97161-GP; 99285-25; G0378; J3480; J7030

== ENCOUNTER 2020-01-08 16:42 | Emergency (ER) | payer OTHER, BC ==
[2020-01-08] MEDS ORDERED: METOCLOPRAMIDE HCL INJECTION 10 MG/2 ML VIAL IVPUSH ONE (17:03)
[2020-01-08] MEDS ORDERED: ACETAMINOPHEN 1000 MG/100 ML VIAL (NON FORMULARY) IVPB ONE (17:03)
[2020-01-08 17:05] VITALS: BMI 28.3
[2020-01-08] MEDS ORDERED: ACETAMINOPHEN INJECTION 100 ML IVPB ONE (17:26)
[2020-01-08] MEDS ORDERED: METOCLOPRAMIDE HCL INJECTION 10 MG/2 ML VIAL ONE (17:27)
[2020-01-08] MEDS ORDERED: MECLIZINE HCL 25 MG TABLET (FP) PO ONE (17:30)
--- NOTE | 2020-01-08 17:30 | PDOC ---
Attending Attestation - Resident Resident Name: Toby Huang - ED Attending Attestation I have performed the following: I have examined & evaluated the patient, The case was reviewed & discussed with the resident, I agree w/resident's findings & plan, Exceptions are as noted - HPI HPI: 01/08/20 17:32 69yo female with hx of vertigo about a year ago presents with a week of headaches behind her R eye/R forehead and dizziness/feeling off balance. Pt c/o nausea. States about 2 weeks ago that she saw Dr. Correa for l ear pain and sinus pressure. States she was treated with ear drops at that time, followed up with Dr. Whyte today - no ear infection, nasal exam normal, no signs of infection per dr whyte, but bp 200 in the office with the headache and dizziness. Pt states she has been taking full strength asa daily for the valenzuela without relief x 1 week. No f /c. No neck pain. Vertigo and nausea. States her L ear still feels funny. States about a week ago she felt sob when walking, but she used her inhaler with relief. NO cp. No abd pain. No vomiting. - Physicial Exam PE: 01/08/20 17:36 Gen: aaox3, nad heent: PERRL, EOMI, mild nare bogginess, tm intact-no bulging, no erythema, no effusion, no otitis externa, posterior pharynx clear, mmm neck: supple heart: +s1s2 reg lungs: cta b/l abd: soft, nt/nd +bs ext: no c/c/e neuro: cn ii-xii grossly intact, muscle strength 5/5 UE and LE, sensation intact , normal heel-mckinley b/l skin: no rashes - Medical Decision Making 01/08/20 17:38 a/p: 69yo female with elevated bp and headache -a week of valenzuela, neuro intact, low suspicion for SAH -suspect bp secondary to pain -will send for head ct, labs, ekg, cxr -will give reglan, meclizine, tylenol for the valenzuela -will monitor and reassess 01/08/20 17:55 labs reviewed cbc pending head ct without acute findings 01/08/20 18:08 trop neg 01/08/20 18:20 cbc stable repeat bp improving 01/08/20 19:18 pt signed out pending repeat bp and further eval/meds for valenzuela Heart Score/ECG Review - ECG Intrepretation Comment:: 01/08/20 18:20 sinus at 62, nl axis, nl interval, no acute st/t wave findings
--- NOTE | 2020-01-08 17:30 | PDOC ---
History of Present Illness - General Chief Complaint: Lightheaded Stated Complaint: DIZZINESS AND HEADACHE Time Seen by Provider: 01/08/20 16:45 - History of Present Illness Initial Comments: Shae Holguin is a 69 y/o female with PMH significant for vertigo, asthma, angina, presenting today with 1 week of vertigo dizziness, headache, nausea. Reports that she was at the ENT's office today when he noted that her blood pressure was > 200 sBP and sent her to the ER for further evaluation. Reports an episode of mild shortness of breath that last week. Denies chest pain/ abdominal pain. Reports migraine like headaches which she does not have regularly. She does not take any meds for BP and she is usually in the 130s. Denies current stressors. Past History - Past Medical History Allergies/Adverse Reactions: Allergies Allergy/AdvReac Type Severity Reaction Status Date / Time Sulfa (Sulfonamide Allergy Verified 08/22/18 19:26 Antibiotics) Home Medications: Ambulatory Orders Aspirin Coated [Ecotrin -] 81 mg PO DAILY tablet.ec 08/24/18 Amoxicillin - [Amoxicillin 500mg Capsule -] 500 mg PO TID #21 capsule 01/08/20 Meclizine HCl [Antivert -] 25 mg PO TID PRN #12 tablet 01/08/20 Asthma: Yes (NO RECENT ATTACK) Cardiac Disorders: Yes (Angina) COPD: No GI Disorders: Yes (COLON POLYPS,H.PYLORI) - Surgical History Cardiac Surgery: Yes (Cath) - Psycho Social/Smoking Cessation Hx Smoking History: Never smoked Information on smoking cessation initiated: No Hx Alcohol Use: No Drug/Substance Use Hx: No Substance Use Type: None Hx Substance Use Treatment: No Review of Systems - Review of Systems Comments:: GENERAL/CONSTITUTIONAL: No fever or chills. No weakness._ HEAD, EYES, EARS, NOSE AND THROAT: No change in vision. No change in hearing. No sore throat._ CARDIOVASCULAR: No chest pain. Reports mild shortness of breath. RESPIRATORY: Denies cough, hemoptysis_ GASTROINTESTINAL: Reports nausea. No vomiting, diarrhea or constipation._ GENITOURINARY: No dysuria, frequency, or change in urination._ MUSCULOSKELETAL: No joint or muscle swelling or pain. No neck or back pain._ SKIN: No rash_ NEUROLOGIC: Repots headache and vertigo. No loss of consciousness, or change in strength/sensation._ ENDOCRINE: No increased thirst. No abnormal weight change_ HEMATOLOGIC/LYMPHATIC: No anemia, easy bleeding, or history of blood clots._ ALLERGIC/IMMUNOLOGIC: No hives or skin allergy._ *Physical Exam - Vital Signs Last Vital Signs Temp Pulse Resp BP Pulse Ox 97.6 F 78 16 224/104 H 100 01/08/20 16:44 01/08/20 16:44 01/08/20 16:44 01/08/20 16:44 01/08/20 16:44 - Physical Exam GENERAL: Awake, alert, and oriented to person/place/time, in no acute distress_ HEAD: No signs of trauma, normocephalic, atraumatic _ EYES: PERRLA, EOMI, sclera anicteric, conjunctiva clear. Dizziness worse with far lateral gaze but no nystagmus noted. ENT: Hearing grossly normal, nares patent, oropharynx clear without exudates. No uvular deviation. Moist mucosa_ NECK: Normal ROM, supple, no lymphadenopathy, JVD, or masses_ LUNGS: No distress, speaks in full sentences, clear to auscultation bilaterally _ HEART: Regular rate and rhythm, normal S1 and S2, no murmurs appreciated, peripheral pulses normal and equal bilaterally._ ABDOMEN: Soft, nontender, normoactive bowel sounds. No guarding, no rebound. No masses_ EXTREMITIES: Normal inspection, Normal range of motion, no edema. No clubbing or cyanosis_ NEUROLOGICAL: CN II-XII tested and intact. Sensation intact to sharp/dull differentiation in all extremities. Motor: Normal tone and bulk. No abnormal movements appreciated. No pronator drift. Strength tested and 5/5 in bilateral wrist flexion/extension, elbow flexion/extension, shoulder abduction, straight leg raise, knee flexion/ extension, ankle dorsiflexion/plantarflexion. Patient ambulates with a steady gait. Coordination: Finger to nose and heel to mckinley testing intact bilaterally. SKIN: Warm, Dry, normal turgor, no rashes or lesions noted_ ED Treatment Course - LABORATORY CBC & Chemistry Diagram: 01/08/20 17:20 01/08/20 17:20 Medical Decision Making - Medical Decision Making 01/08/20 17:35 69F hx of asthma, angina, vertigo, presenting today with 1 week of vertigo, migraine like headache. -cbc, cmp -trop, ekg -ct head -coags -meclizine -ua, ucx 01/08/20 18:09 CT head negative for acute intracranial pathology. 01/08/20 18:22 EKG shows NSR, 62 bpm, no ST elevation, QTc 440. Pt reassessed. Reports moderate improvement with meds. Will order Norvasc 5 mg PO and Toradol 15 mg. 01/08/20 19:00 Pt signed out to Dr. Guaman. Discharge - Discharge Information Problems reviewed: Yes Clinical Impression/Diagnosis: Vertigo, Elevated blood pressure reading Sinusitis Qualifiers: Sinusitis location: unspecified location Chronicity: acute Recurrence: non- recurrent Qualified Code(s): J01.90 - Acute sinusitis, unspecified Condition: Stable Disposition: HOME - Additional Discharge Information Prescriptions: Amoxicillin - [Amoxicillin 500mg Capsule -] 500 mg PO TID #21 capsule Meclizine HCl [Antivert -] 25 mg PO TID PRN #12 tablet PRN Reason: Vertigo - Follow up/Referral Referrals: Jean Paul Correa MD [Primary Care Provider] - 2 Days - Patient Discharge Instructions Patient Printed Discharge Instructions: DI for Sinusitis Additional Instructions: Amoxicillin 500 mg 3 times a day for 1 week Meclizine 25 mg up to 3 times a day as needed for vertigo Follow-up with Dr. Correa within the next 48 hours Return to ER if you have severe headache, persistent vertigo or develop fever - Post Discharge Activity
[2020-01-08 17:48] LABS: ALBUMIN 4.4 g/dl (3.4-5.0); CALCIUM 9.1 mg/dl (8.5-10); CREATININE 0.5 mg/dl (0.55-1.3); POTASSIUM 3.9 mmol/L (3.5-5.1); TOT PROT 7.4 g/dl (6.4-8.2)
[2020-01-08 17:51] LABS: INR 1.05 (0.82-1.09); PROTHROMBIN TIME (PATIENT) 11.7 SEC (10.2-13.0)
[2020-01-08] MEDS ORDERED: MECLIZINE HCL 25 MG TABLET (FP) ONE (18:03)
[2020-01-08 18:11] LABS: BASO % 0.4 % (0-2.0); EOS % 0.5 % (0-4.5); HEMATOCRIT 45.1 % (32.4-45.2); HEMOGLOBIN 14.9 GM/dl (10.7-15.3); LYMPH % 22.8 % (8-40); MCH 29.5 pg (25.7-33.7); MEAN CELL VOLUME 89.4 fl (80-96); MEAN PLT VOLUME 9.1 fl (7.5-11.1); MONO % 5.7 % (3.8-10.2); NEUT % 70.6 % (42.8-82.8); PLATELET COUNT 240 K/MM3 (134-434); RBC 5.04 M/mm3 (3.60-5.2); RDW 12.4 % (11.6-15.6); WHITE BLOOD COUNT 7.9 K/mm3 (4.0-10.8)
[2020-01-08] MEDS ORDERED: KETOROLAC TROMETHAMINE 15 MG/ML VIAL IVPUSH ONE (18:23)
[2020-01-08] MEDS ORDERED: amLODIPine BESYLATE 5 MG TABLET (FP) PO ONE (18:23)
[2020-01-08] MEDS ORDERED: amLODIPine BESYLATE 5 MG TABLET (FP) ONE (18:42)
[2020-01-08] MEDS ORDERED: KETOROLAC TROMETHAMINE 15 MG/ML VIAL ONE (18:42)
[2020-01-08 19:03] LABS: EPITHELIAL CELLS FEW /hpf
--- NOTE | 2020-01-08 19:42 | PDOC ---
*Physical Exam - Vital Signs Last Vital Signs Temp Pulse Resp BP Pulse Ox 97.6 F 66 18 197/87 H 98 01/08/20 16:44 01/08/20 18:30 01/08/20 18:30 01/08/20 18:30 01/08/20 18:30 ED Treatment Course - LABORATORY CBC & Chemistry Diagram: 01/08/20 17:20 01/08/20 17:20 - ADDITIONAL ORDERS Additional order review: Laboratory Results 01/08/20 01/08/20 01/08/20 17:20 17:20 17:20 PT with INR 11.7 INR 1.05 PTT (Actin FS) Sodium 134 L Potassium 3.9 Chloride 97 L Carbon Dioxide 29 Anion Gap 8 BUN 6.0 L Creatinine 0.5 L Est GFR (CKD-EPI)AfAm 112.86 Est GFR (CKD-EPI)NonAf 97.37 Random Glucose 160 H Calcium 9.1 Total Bilirubin 1.0 AST 26 ALT 25 Alkaline Phosphatase 72 Creatine Kinase 143 Troponin I Total Protein 7.4 Albumin 4.4 Urine Color Yellow Urine Appearance Clear Urine pH 7.0 Urine Protein Negative Urine Glucose (UA) Negative Urine Ketones Negative Urine Blood Trace-intact Urine Nitrite Negative Urine Bilirubin Negative Urine Urobilinogen 0.2 Ur Leukocyte Esterase Negative Urine RBC 2-5 Urine WBC 2-5 Ur Transition Epith Cell Few Urine Bacteria Few 01/08/20 01/08/20 17:20 17:06 PT with INR INR PTT (Actin FS) 33.1 Sodium Potassium Chloride Carbon Dioxide Anion Gap BUN Creatinine Est GFR (CKD-EPI)AfAm Est GFR (CKD-EPI)NonAf Random Glucose Calcium Total Bilirubin AST ALT Alkaline Phosphatase Creatine Kinase Troponin I < 0.03 Total Protein Albumin Urine Color Urine Appearance Urine pH Urine Protein Urine Glucose (UA) Urine Ketones Urine Blood Urine Nitrite Urine Bilirubin Urine Urobilinogen Ur Leukocyte Esterase Urine RBC Urine WBC Ur Transition Epith Cell Urine Bacteria 01/08/20 17:20 RBC 5.04 MCV 89.4 MCHC 33.0 RDW 12.4 MPV 9.1 Neutrophils % 70.6 Lymphocytes % 22.8 Monocytes % 5.7 Eosinophils % 0.5 Basophils % 0.4 - Medications Given in the ED: ED Medications Discontinued Medications Generic Name Dose Route Start Last Admin Trade Name Freq PRN Reason Stop Dose Admin Acetaminophen 1,000 mg 01/08/20 17:03 01/08/20 17:40 Ofirmev Injection - IVPB 01/08/20 17:04 1,000 mg ONCE ONE Administration Amlodipine Besylate 5 mg 01/08/20 18:23 01/08/20 18:50 Norvasc - PO 01/08/20 18:24 5 mg ONCE ONE Administration Ketorolac Tromethamine 15 mg 01/08/20 18:23 01/08/20 18:50 Toradol Injection - IVPUSH 01/08/20 18:24 15 mg ONCE ONE Administration Meclizine HCl 25 mg 01/08/20 17:30 01/08/20 18:09 Antivert - PO 01/08/20 17:31 25 mg ONCE ONE Administration Metoclopramide HCl 10 mg 01/08/20 17:03 01/08/20 17:35 Reglan Injection - IVPUSH 01/08/20 17:04 10 mg ONCE ONE Administration ED Progress Note - Progress Note Progress Note: Care of this patient received from Dr. Martinez. This 69-year-old woman was referred here from Dr. Whyte's office where she presented with right periorbital pain and vertigo; her presenting blood pressure was markedly elevated at the office. Patient had full diagnostic work- up including laboratory evaluation, EKG, noncontrast head CT. No acute abnormalities detected on work-up. Patient was treated with IV acetaminophen, IV ketorolac (15 mg), IV Reglan and meclizine PO. For her persistent hypertension, amlodipine 5 mg was administered. Blood pressure measured 90 minutes after amlodipine dose: 190/79 (presenting BP was 220/104) Patient felt significantly better after medications with resolution of her vertigo; she did however have some mild residual discomfort in the right periorbital area. Because of very mild edema and tenderness in this area, she will be started on amoxicillin 500 mg 3 times a day with first dose given here. The patient relates that she had been started on antihistamine/decongestant therapy last week without significant decrease in her periorbital discomfort. Antibiotic course will be started empirically and patient has been strongly advised to follow-up with her PMD, Dr. Correa, within the next 48 hours to re- evaluate her blood pressure and her response to antibiotic therapy. She should return to the emergency room if she notes recurrence of persistent vertigo, worsening of her headache or development of fever Discharge - Discharge Information Problems reviewed: Yes Clinical Impression/Diagnosis: Vertigo, Elevated blood pressure reading Sinusitis Qualifiers: Sinusitis location: unspecified location Chronicity: acute Recurrence: non- recurrent Qualified Code(s): J01.90 - Acute sinusitis, unspecified Condition: Stable Disposition: HOME - Additional Discharge Information Prescriptions: Amoxicillin - [Amoxicillin 500mg Capsule -] 500 mg PO TID #21 capsule Meclizine HCl [Antivert -] 25 mg PO TID PRN #12 tablet PRN Reason: Vertigo - Follow up/Referral Referrals: Jean Paul Correa MD [Primary Care Provider] - 2 Days - Patient Discharge Instructions Patient Printed Discharge Instructions: DI for Sinusitis Additional Instructions: Amoxicillin 500 mg 3 times a day for 1 week Meclizine 25 mg up to 3 times a day as needed for vertigo Follow-up with Dr. Correa within the next 48 hours Return to ER if you have severe headache, persistent vertigo or develop fever - Post Discharge Activity
[2020-01-08 19:54] VITALS: BP 190/79; PULSE 67; TEMP 97.7
[2020-01-08] MEDS ORDERED: AMOXICILLIN 500 MG CAPSULE (FP) PO ONE (20:12)
[2020-01-08] MEDS ORDERED: AMOXICILLIN 250 MG CAPSULE ONE (20:20)
--- NOTE | 2020-01-09 11:55 | EKG ---
Test Reason : Blood Pressure : / mmHG Vent. Rate : 062 BPM Atrial Rate : 062 BPM P-R Int : 164 ms QRS Dur : 100 ms QT Int : 434 ms P-R-T Axes : 044 048 027 degrees QTc Int : 440 ms NORMAL SINUS RHYTHM NORMAL ECG WHEN COMPARED WITH ECG OF 22-AUG-2018 19:58, NO SIGNIFICANT CHANGE WAS FOUND Confirmed by CHARO BECKER MD ([id number]) on 01/09/2020 11:54:48 AM Referred By: MD EDWARDS Confirmed By:CHARO BECKER MD
== END 2020-01-08 20:28 | disposition home or self-care (01) ==
LOC: FER 16:42
PROC: 3E0333Z Introduction of Anti-inflammatory into Peripheral Vein, Percutaneous Approach (ICD-10-PCS; principal; 2020-01-08)
PROC: 3E033GC Introduction of Other Therapeutic Substance into Peripheral Vein, Percutaneous Approach (ICD-10-PCS; 2020-01-08)
PROC: 3E0333Z Introduction of Anti-inflammatory into Peripheral Vein, Percutaneous Approach (ICD-10-PCS; 2020-01-08)
DX: Z01.31 Encounter for examination of blood pressure with abnormal findings (principal); R42 Dizziness and giddiness; J01.90 Acute sinusitis, unspecified
CPT/HCPCS: 36415; 70450-TC; 80053; 81003; 81015; 82550; 84484; 85025; 85610; 85730; 93005; 99285-25; J0131

== ENCOUNTER 2020-01-10 20:14 | Emergency (ER) | payer OTHER, BC ==
[2020-01-10 20:42] VITALS: TEMP 98.1; BMI 29.2
[2020-01-10] MEDS ORDERED: amLODIPine BESYLATE 5 MG TABLET (FP) PO ONE (21:37)
[2020-01-10] MEDS ORDERED: amLODIPine BESYLATE 5 MG TABLET (FP) ONE (21:38)
[2020-01-10 22:23] LABS: ALBUMIN 4.2 g/dl (3.4-5.0); BILIRUBIN,TOTAL 0.3 mg/dl (0.2-1); CALCIUM 9.5 mg/dl (8.5-10); CREATININE 0.6 mg/dl (0.55-1.3); POTASSIUM 3.9 mmol/L (3.5-5.1)
--- NOTE | 2020-01-10 22:48 | PDOC ---
Documentation entered by Faith Villalobos SCRIBE, acting as scribe for Christy Guaman MD. Christy Guaman MD: This documentation has been prepared by the Griselda chisholm Brenda, SCRIBE, under my direction and personally reviewed by me in its entirety. I confirm that the documentation accurately reflects all work, treatment, procedures, and medical decision making performed by me. History of Present Illness - General Chief Complaint: Lightheaded Stated Complaint: DIZZY, HIGH BLOOD PRESSURE History Source: Patient Exam Limitations: No Limitations - History of Present Illness Initial Comments: 01/10/20 21:11 The patient is a 69 year old female with a significant PMH of vertigo and angina recently seen in the ED on 01/08/2020 who presents today for evaluation of high blood pressure. Patient reports that she was recently seen in the ED for the same symptoms 2 days ago, and felt better upon leaving. She notes that today around 1:00pm, she began to not feel well, with little vertigo and a headache. Patient reports taking her BP with a portable monitor and it read 213/ 118. She tried to get in touch with PMD to not avail, so patient came to the ED. She also endorses mild nausea. Allergies: Sulfa Past surgical Hx: Cardiac Cath Past History - Past Medical History Allergies/Adverse Reactions: Allergies Allergy/AdvReac Type Severity Reaction Status Date / Time Sulfa (Sulfonamide Allergy Verified 01/10/20 20:21 Antibiotics) Home Medications: Ambulatory Orders Aspirin Coated [Ecotrin -] 81 mg PO DAILY tablet.ec 08/24/18 Amoxicillin - [Amoxicillin 500mg Capsule -] 500 mg PO TID #21 capsule 01/08/20 Meclizine HCl [Antivert -] 25 mg PO TID PRN #12 tablet 01/08/20 Amlodipine Besylate [Norvasc -] 5 mg PO DAILY #20 tablet 01/10/20 Asthma: Yes (NO RECENT ATTACK) Cardiac Disorders: Yes (Angina) COPD: No GI Disorders: Yes (COLON POLYPS,H.PYLORI) - Surgical History Cardiac Surgery: Yes (Cath) - Psycho Social/Smoking Cessation Hx Smoking History: Never smoked Hx Alcohol Use: No Drug/Substance Use Hx: No Substance Use Type: None Hx Substance Use Treatment: No Review of Systems - Review of Systems Able to Perform ROS?: Yes Comments:: 01/10/20 21:20 GENERAL/CONSTITUTIONAL: No fever or chills. No weakness. HEAD, EYES, EARS, NOSE AND THROAT: (+) Headache. (+) Light vertigo. No change in vision. No ear pain or discharge. No sore throat. CARDIOVASCULAR: No chest pain or shortness of breath. RESPIRATORY: No cough, wheezing, or hemoptysis. GASTROINTESTINAL:(+) nausea. No vomiting, diarrhea or constipation. GENITOURINARY: No dysuria, frequency, or change in urination. MUSCULOSKELETAL: No joint or muscle swelling or pain. No neck or back pain. SKIN: No rash NEUROLOGIC: No headache, vertigo, loss of consciousness, or change in strength/ sensation. ENDOCRINE: No increased thirst. No abnormal weight change. HEMATOLOGIC/LYMPHATIC: No anemia, easy bleeding, or history of blood clots. ALLERGIC/IMMUNOLOGIC: No hives or skin allergy. *Physical Exam - Physical Exam 01/10/20 21:27 GENERAL: Awake, alert, and fully oriented, in no acute distress HEAD: No signs of trauma EYES: PERRLA, EOMI, sclera anicteric, conjunctiva clear ENT: Auricles normal inspection, hearing grossly normal, nares patent, oropharynx clear without exudates. Moist mucosa NECK: Normal ROM, supple, no lymphadenopathy, JVD, or masses LUNGS: Breath sounds equal, clear to auscultation bilaterally. No wheezes, and no crackles HEART: Regular rate and rhythm, normal S1 and S2, no murmurs, rubs or gallops ABDOMEN: Soft, nontender, normoactive bowel sounds. No guarding, no rebound. No masses EXTREMITIES: Normal range of motion, no edema. No clubbing or cyanosis. No cords, erythema, or tenderness NEUROLOGICAL: Cranial nerves II through XII grossly intact. Normal speech, normal gait SKIN: Warm, Dry, normal turgor, no rashes or lesions noted. ED Treatment Course - LABORATORY CBC & Chemistry Diagram: 01/10/20 22:00 Medical Decision Making - Medical Decision Making As noted above, this 69-year-old woman returns emergency room after being evaluated here 2 days ago: At that time patient had vertigo, right-sided headache/periorbital pain and elevated blood pressure reading. Work-up including noncontrast head CT, EKG, labs including troponin level were normal. The patient received meclizine, IV Toradol and IV Zofran. She also received amlodipine 5 mg by mouth while in the ER, with good control of her BP. Patient states that she felt well until this afternoon when she felt slightly nauseated and "off". She is unable to elaborate the details of how she felt unwell but denies chest pain, shortness of breath, palpitations, vertigo or headache. She decided to measure her blood pressure on her 's home monitor; it had been normal several times yesterday. Tonight, she reports that her blood pressure was 224/110 and she reported here. Initial blood pressure here measured at 211/86. When patient was discharged 2 days ago, it was decided that she should follow- up with her PMD, Dr. Correa within 48 hours and further antihypertensive therapy would be addressed at that time with her doctor. Prescription for amlodipine was not sent. Patient did not follow-up with Dr. Correa during that time and received no other antihypertensive. Twelve-lead electrocardiogram was performed and interpreted by me: Normal sinus rhythm at 64 bpm; intervals, waveforms and axis are all normal. No evidence of acute ST or T wave abnormality; no evidence of acute cardiac arrhythmia. Because patient has risk factors for coronary artery disease and had mild nausea this afternoon, chemistry profile with troponin level was sent. Meanwhile, patient was given amlodipine 5 mg (same dose as 48 hours ago) by mouth for control of her BP, since she had excellent response when it was given 2 days ago. Lab values were normal except for random glucose of 165. Troponin was not elevated Patient had been told in the past that she may be prediabetic but her random glucose levels were reportedly lower in recent times. Remeasuring of her blood pressure shows response (205/91) Prescription for amlodipine 5 mg daily sent to her pharmacy. Patient has been strongly recommended to follow-up with Dr. Correa on January 12. She states that she had made an appointment with Dr. Mccord, senior ux designer, on the recommendation of Dr. Correa because of an episode of shortness of breath. The appointment was for a day last week but she unfortunately canceled it. Patient should return to the emergency room if she has chest pain, shortness of breath, palpitations, persistent nausea Discharge - Discharge Information Problems reviewed: Yes Clinical Impression/Diagnosis: Hypertension Qualifiers: Hypertension type: unspecified Qualified Code(s): I10 - Essential (primary) hypertension Condition: Stable Disposition: HOME - Additional Discharge Information Prescriptions: Amlodipine Besylate [Norvasc -] 5 mg PO DAILY #20 tablet - Follow up/Referral Referrals: Jean Paul Correa MD [Primary Care Provider] - - Patient Discharge Instructions Patient Printed Discharge Instructions: DI for High Blood Pressure Additional Instructions: Amlodipine 5 mg daily; next dose tomorrow evening Rest; avoid anxiety/excessive stress as much as possible Avoid excessive salt/excessive sugar in your diet; drink plenty of fluids Follow-up with Dr. Correa and Dr. Mccord next week as discussed Return to ER if you have chest pain, shortness of breath, palpitations - Post Discharge Activity
[2020-01-10 22:52] VITALS: BP 205/91; PULSE 63
--- NOTE | 2020-01-11 13:15 | EKG ---
Test Reason : Blood Pressure : / mmHG Vent. Rate : 064 BPM Atrial Rate : 064 BPM P-R Int : 154 ms QRS Dur : 092 ms QT Int : 436 ms P-R-T Axes : 020 060 021 degrees QTc Int : 449 ms NORMAL SINUS RHYTHM NORMAL ECG WHEN COMPARED WITH ECG OF 08-JAN-2020 18:08, NO SIGNIFICANT CHANGE WAS FOUND Confirmed by CHAD EPPS MD ([id number]) on 01/11/2020 1:15:40 PM Referred By: MD PATEL Confirmed By:CHAD EPPS MD
== END 2020-01-10 23:15 | disposition home or self-care (01) ==
LOC: FER 20:14
DX: I10 Essential (primary) hypertension (principal); Z88.6 Allergy status to analgesic agent; I20.9 Angina pectoris, unspecified; K92.9 Disease of digestive system, unspecified; J45.909 Unspecified asthma, uncomplicated
CPT/HCPCS: 36415; 80053; 82550; 84484; 93005; 99284-25

== ENCOUNTER 2022-09-17 14:28 | Emergency (ER) | payer OTHER, BC ==
[2022-09-17] MEDS ORDERED: ACETAMINOPHEN 325 MG TABLET (FP) PO ONE ×2 (14:32→20:15)
[2022-09-17 14:38] VITALS: RESP 18; TEMP 98.8; BMI 27.4
[2022-09-17] MEDS ORDERED: ACETAMINOPHEN 325 MG TABLET (FP) ONE ×2 (14:39→20:23)
[2022-09-17 18:51] VITALS: BP 110/61; PULSE 60
[2022-09-17] MEDS ORDERED: LIDOCAINE HCL 1%, 10 MG/ML (50 mL VIAL) INF ONE (19:29)
[2022-09-17] MEDS ORDERED: LIDOCAINE HCL 1%, 10 MG/ML (20ML VIAL) ONE (19:32)
[2022-09-17] MEDS ORDERED: ONDANSETRON *ODT* 4 MG TABLET SL ONE (20:41)
[2022-09-17] MEDS ORDERED: ONDANSETRON *ODT* 4 MG TABLET ONE (20:44)
== END 2022-09-17 22:14 | disposition home or self-care (01) ==
LOC: FER 14:28
DX: S52.502A Unspecified fracture of the lower end of left radius, initial encounter for closed fracture (principal); S93.401A Sprain of unspecified ligament of right ankle, initial encounter; W01.0XXA Fall on same level from slipping, tripping and stumbling without subsequent striking against object, initial encounter
CPT/HCPCS: 70450-TC; 72125-TC; 73110-TC-LT-FY; 73130-TC-LT-FY; 73610-TC-RT-FY; 73630-TC-RT-FY; 82962; 93005; 99285-25; Q0162

== ENCOUNTER 2022-09-22 06:10 | Day surgery (SDC) | payer OTHER, BC ==
[2022-09-19 15:54] VITALS: BMI 28.3
[2022-09-22] MEDS ORDERED: MIDAZOLAM HCL 2 MG/2 ML SINGLE DOSE VIAL ONE (07:04)
[2022-09-22] MEDS ORDERED: PROPOFOL 80 ML ONE (07:04)
[2022-09-22] MEDS ORDERED: KETAMINE HCL 200 MG/20 ML VIAL ONE (07:04)
[2022-09-22] MEDS ORDERED: ONDANSETRON 4 MG/2 ML VIAL ONE (07:05)
[2022-09-22] MEDS ORDERED: ceFAZolin SODIUM 1 GM VIAL ONE ×2 (07:05)
[2022-09-22] MEDS ORDERED: KETOROLAC TROMETHAMINE 30 MG/1 ML VIAL ONE (07:05)
[2022-09-22] MEDS ORDERED: DEXAMETHASONE SOD PHOSPHATE 4 MG/1 ML VIAL ONE (07:05)
[2022-09-22] MEDS ORDERED: DEXAMETHASONE SOD PHOSPHATE/PF 10 MG/ML SDV ONE (07:11)
[2022-09-22] MEDS ORDERED: ACETAMINOPHEN INJECTION 100 ML IVPB ONE (07:11)
[2022-09-22] MEDS ORDERED: BUPIVACAINE HCL/PF 0.5% (5 MG/ML) 30 ML VIAL IJ ONE (07:11)
[2022-09-22] MEDS ORDERED: oxyCODONE HCL 5 MG TABLET PO PRN ×2 (07:41)
[2022-09-22] MEDS ORDERED: ACETAMINOPHEN 325 MG TABLET (FP) PO PRN (07:41)
[2022-09-22] MEDS ORDERED: ONDANSETRON 4 MG/2 ML VIAL IVPUSH PRN (07:41)
[2022-09-22] MEDS ORDERED: LACTATED RINGERS SOLUTION 1,000 ML IV SCH (07:45)
[2022-09-22 10:52] VITALS: RESP 16; TEMP 97.5
[2022-09-22 11:36] VITALS: BP 152/82; PULSE 78
== END 2022-09-22 11:45 | disposition home or self-care (01) ==
LOC: FASU 06:10
PROVIDERS: ATTEND Orthopaedic Surgery
PROC: 0LN60ZZ Release Left Lower Arm and Wrist Tendon, Open Approach (ICD-10-PCS; 2022-09-22)
PROC: 0PSJ04Z Reposition Left Radius with Internal Fixation Device, Open Approach (ICD-10-PCS; principal; 2022-09-22 08:37)
DX: S52.592A Other fractures of lower end of left radius, initial encounter for closed fracture (principal); X58.XXXA Exposure to other specified factors, initial encounter; Y93.9 Activity, unspecified; Y92.9 Unspecified place or not applicable
CPT/HCPCS: 73110-TC-LT-FY; 94760; C1713; C1889

== ENCOUNTER 2023-12-14 17:12 | Inpatient (IN) | payer OTHER, BC ==
[2023-12-14 18:44] LABS: HEMATOCRIT 33.4 % (32.4-45.2); HEMOGLOBIN 11.1 G/dL (10.7-15.3); MCH 29.6 pg (25.7-33.7); MCHC 33.3 g/dl (32.0-36.0); MEAN PLT VOLUME 7.5 fl (7.5-11.1); PLATELET COUNT 462.4 10^3/uL (134-434); RBC 3.75 10^6/uL (3.60-5.2); RDW 14.3 % (11.6-15.6); WHITE BLOOD COUNT 11.6 10^3/uL (4.0-10.8)
[2023-12-14 18:49] LABS: PLATELET ESTIMATE SLT INCREASE
[2023-12-14 18:58] LABS: ALBUMIN 3.7 g/dl (3.4-5.0); BILIRUBIN,TOTAL 0.6 mg/dl (0.2-1); CALCIUM 8.9 mg/dl (8.5-10.1); CREATININE 0.9 mg/dl (0.6-1.3); POTASSIUM 4.1 mmol/L (3.5-5.1); TOT PROT 6.5 g/dl (6.4-8.2)
[2023-12-14] MEDS ORDERED: cefTRIAXone SODIUM 1 GM VIAL ONE (19:12)
[2023-12-15 09:35] LABS: CALCIUM 8.8 mg/dl (8.5-10.1); CREATININE 0.9 mg/dl (0.6-1.3); POTASSIUM 4.2 mmol/L (3.5-5.1)
[2023-12-15] MEDS: amLODIPine BESYLATE 5 MG TABLET (FP) PO SCH (09:49)
[2023-12-15 10:37] LABS: BASO % 0.7 % (0-2.0); EOS % 0.6 % (0-4.5); HEMOGLOBIN 10.7 GM/dL (10.7-15.3); LYMPH % 10.7 % (8-40); MCH 29.4 pg (25.7-33.7); MCHC 33.5 g/dl (32.0-36.0); MEAN CELL VOLUME 87.9 fl (80-96); MEAN PLT VOLUME 7.7 fl (7.5-11.1); MONO % 8.2 % (3.8-10.2); NEUT % 79.8 % (42.8-82.8); PLATELET COUNT 495 10^3/uL (134-434); RBC 3.64 M/mm3 (3.60-5.2); WHITE BLOOD COUNT 10.5 K/mm3 (4.0-10.0)
[2023-12-15 16:01] VITALS: BMI 26.2
[2023-12-15] MEDS: CEFTRIAXONE 1 GM in DEXTROSE 5%-WATER - 50 ML IVPB SCH (20:21)
[2023-12-15] MEDS: PHENAZOPYRIDINE HCL 100 MG TABLET (FP) PO ONE (22:48)
[2023-12-15] MEDS: MELATONIN 5 MG TABLETS PO PRN (22:48)
[2023-12-16 08:51] LABS: ALBUMIN 3.3 g/dl (3.4-5.0); BILIRUBIN,TOTAL 0.4 mg/dl (0.2-1); CALCIUM 8.9 mg/dl (8.5-10.1); CREATININE 0.9 mg/dl (0.6-1.3); POTASSIUM 4.6 mmol/L (3.5-5.1); TOT PROT 6.1 g/dl (6.4-8.2)
[2023-12-16] MEDS: LACTOBACILLUS ACIDOPHILUS 1 TABLET PO SCH (09:26)
[2023-12-16 10:20] LABS: EOS % 1.3 % (0-4.5); HEMATOCRIT 31.7 % (32.4-45.2); HEMOGLOBIN 10.5 GM/dL (10.7-15.3); LYMPH % 16.4 % (8-40); MCH 29.1 pg (25.7-33.7); MEAN PLT VOLUME 7.6 fl (7.5-11.1); MONO % 10.8 % (3.8-10.2); NEUT % 70.5 % (42.8-82.8); PLATELET COUNT 483 10^3/uL (134-434); RDW 12.8 % (11.6-15.6); WHITE BLOOD COUNT 8.2 K/mm3 (4.0-10.0)
[2023-12-17 10:04] LABS: ALBUMIN 3.2 g/dl (3.4-5.0); BILIRUBIN,TOTAL 0.3 mg/dl (0.2-1); CALCIUM 8.6 mg/dl (8.5-10.1); CREATININE 0.9 mg/dl (0.6-1.3); POTASSIUM 4.4 mmol/L (3.5-5.1); TOT PROT 5.9 g/dl (6.4-8.2)
[2023-12-17 11:13] LABS: BASO % 0.8 % (0-2.0); EOS % 1.4 % (0-4.5); HEMATOCRIT 31.2 % (32.4-45.2); HEMOGLOBIN 10.3 GM/dL (10.7-15.3); LYMPH % 17.2 % (8-40); MCH 29.1 pg (25.7-33.7); MCHC 33.2 g/dl (32.0-36.0); MEAN CELL VOLUME 87.7 fl (80-96); MEAN PLT VOLUME 7.8 fl (7.5-11.1); MONO % 11.6 % (3.8-10.2); PLATELET COUNT 454 10^3/uL (134-434); RBC 3.55 M/mm3 (3.60-5.2); WHITE BLOOD COUNT 6.9 K/mm3 (4.0-10.0)
[2023-12-17 12:25] VITALS: BP 140/64; PULSE 69; RESP 16; TEMP 98.8
== END 2023-12-17 12:25 | disposition home or self-care (01) | DRG 690 ==
LOC: FER 17:12 → FM/S 21:43
PROVIDERS: ADMIT Internal Medicine
DX: N39.0 Urinary tract infection, site not specified (principal); E87.1 Hypo-osmolality and hyponatremia; I10 Essential (primary) hypertension; I25.10 Atherosclerotic heart disease of native coronary artery without angina pectoris; E11.65 Type 2 diabetes mellitus with hyperglycemia; J45.909 Unspecified asthma, uncomplicated; D64.9 Anemia, unspecified
CPT/HCPCS: 36415; 76775-TC; 76856-TC; 80048; 80053; 81003; 81015; 83036; 83605; 85025; 87040; 87086; 99285-25

== ENCOUNTER 2024-02-28 14:29 | Emergency (ER) | payer OTHER, BC ==
[2024-02-28 14:50] VITALS: BP 157/77; PULSE 74; RESP 20; TEMP 97.9; BMI 26.5
[2024-02-28] MEDS ORDERED: IBUPROFEN 400 MG TABLET (FP) PO ONE (15:13)
[2024-02-28] MEDS: IBUPROFEN 400 MG TABLET (FP) PO ONE (15:15)
== END 2024-02-28 18:20 | disposition home or self-care (01) ==
LOC: FER 14:29
PROC: 2W3CX1Z Immobilization of Right Lower Arm using Splint (ICD-10-PCS; principal; 2024-02-28)
DX: S52.611A Displaced fracture of right ulna styloid process, initial encounter for closed fracture (principal); S52.501A Unspecified fracture of the lower end of right radius, initial encounter for closed fracture; W01.0XXA Fall on same level from slipping, tripping and stumbling without subsequent striking against object, initial encounter; Y93.01 Activity, walking, marching and hiking
CPT/HCPCS: 73090-TC-RT-FY; 73110-TC-RT-FY; 73130-TC-RT-FY; 99284-25

== ENCOUNTER 2024-03-04 03:55 | Day surgery (SDC) | payer OTHER, BC ==
[2024-03-01 11:45] VITALS: BMI 26.5
[2024-03-04] MEDS ORDERED: MIDAZOLAM HCL 2 MG/2 ML SINGLE DOSE VIAL ONE (08:37)
[2024-03-04] MEDS ORDERED: PROPOFOL 20 ML ONE (08:37)
[2024-03-04] MEDS ORDERED: FENTANYL CITRATE/PF 50 MCG/ML VIAL ONE ×2 (08:37→09:57)
[2024-03-04] MEDS ORDERED: ROPIVACAINE HCL 0.5% 30ML VIAL ONE (09:09)
[2024-03-04] MEDS ORDERED: DEXAMETHASONE SOD PHOSPHATE 10 MG/1 ML VIAL ONE (09:09)
[2024-03-04] MEDS: ceFAZolin SODIUM 1 GM VIAL IVPB ONE ×3 (09:38→09:53)
[2024-03-04] MEDS ORDERED: ceFAZolin SODIUM 1 GM VIAL ONE (11:05)
[2024-03-04] MEDS ORDERED: ONDANSETRON 4 MG/2 ML VIAL ONE (11:05)
[2024-03-04] MEDS ORDERED: oxyCODONE HCL 5 MG TABLET PO PRN (11:22)
[2024-03-04] MEDS ORDERED: ONDANSETRON 4 MG/2 ML VIAL IVPUSH PRN (11:22)
[2024-03-04] MEDS ORDERED: ACETAMINOPHEN 1000 MG/100 ML BAG IVPB ONE (11:23)
[2024-03-04] MEDS ORDERED: LACTATED RINGERS SOLUTION 1,000 ML IV SCH (11:30)
[2024-03-04] MEDS: ACETAMINOPHEN 1000 MG/100 ML BAG IVPB ONE (12:00)
[2024-03-04] MEDS ORDERED: ACETAMINOPHEN INJECTION 100 ML IVPB ONE (12:02)
[2024-03-04 14:39] VITALS: BP 147/76; PULSE 88; RESP 20; TEMP 97.3
== END 2024-03-04 15:18 | disposition home or self-care (01) ==
LOC: JASU-SURG 03:55
PROVIDERS: ATTEND Orthopaedic Surgery
PROC: 0PSH04Z Reposition Right Radius with Internal Fixation Device, Open Approach (ICD-10-PCS; principal; 2024-03-04 11:00)
DX: S52.571A Other intraarticular fracture of lower end of right radius, initial encounter for closed fracture (principal); X58.XXXA Exposure to other specified factors, initial encounter; Y93.9 Activity, unspecified; Y92.9 Unspecified place or not applicable
CPT/HCPCS: 25290; 25609; C1713; 76000-TC-FY; 94760; C1758; J0131; J1100